=== PATIENT | male | born 1995 | race Caucasian/White ===

== ENCOUNTER 2019-03-22 01:28 | Inpatient (IN) ==
[2019-03-22] MEDS ORDERED: MOM Conc 10 ML UD.LIQ PO PRN (01:32)
[2019-03-22] MEDS ORDERED: *HR* LORazepam 2 MG/ML VIAL IM PRN (01:32)
[2019-03-22] MEDS ORDERED: Haloperidol Lactate 5 MG/ML VIAL IM PRN (01:32)
[2019-03-22] MEDS ORDERED: traZODone 50 MG TABLET PO PRN (01:32)
[2019-03-22] MEDS ORDERED: Mag Hydrox/Al Hydrox/Simeth 30 ML UDC PO PRN (01:32)
[2019-03-22] MEDS ORDERED: *HR* LORazepam 1 MG TABLET PO PRN (01:32)
[2019-03-22] MEDS: hydrOXYzine pamoate 25 MG CAPSULE PO PRN ×3 (02:32→21:24)
[2019-03-22] MEDS: Acetaminophen 325 MG TABLET PO PRN ×2 (02:32→21:25)
[2019-03-22] MEDS: Nicotine 21 MG PATCH.TD24 TD SCH (09:40)
[2019-03-23] MEDS: Nicotine 21 MG PATCH.TD24 TD SCH (08:59)
[2019-03-23] MEDS ORDERED: BuPROPion SR (12 HR) 150 MG TABLET PO SCH (09:00)
[2019-03-23 11:27] VITALS: BP 122/78
== END 2019-03-23 13:40 | disposition home or self-care (01) | DRG 751 ==
LOC: 1ANU 01:28
PROVIDERS: ADMIT Psychiatry & Neurology Forensic Psychiatry; ATTEND Psychiatry & Neurology Forensic Psychiatry